=== PATIENT | female | born 1975 | race Hispanic/Latino ===

== ENCOUNTER 2017-08-23 05:42 | Emergency (ER) | payer BC ==
--- OUTSIDE RECORDS SUMMARY | 2017-08-23 05:44 | XMS REPORT ---
:1975 Author [facility] Address [address] [place] [address] Dr. Reyes [address] [place] [id number] Care Team Providers Name Role Phone Unavailable Unavailable Unavailable Problems This patient has no known problems. Allergies, Adverse Reactions, Alerts This patient has no known allergies or adverse reactions. Medications This patient has no known medications. Results Test Description Test Time Test Comments Text Results Atomic Results Result Comments POCT-GLUCOSE METER 2016-10-14 16:47:00 Test Item Value Reference Range Comments POC-GLUCOSE METER (AV) (test 306 mg/dL 70-110 TESTED AT [facility] [address] [id number]) [facility] [address]
--- OUTSIDE RECORDS SUMMARY | 2017-08-23 05:44 | XMS REPORT | Clinical Summary ---
:1975 Author Organization [facility] Address [address] [place] [address] Phone Care Team Providers Name Role Phone Unavailable Primary Care Provider Unavailable Allergies No Known Allergies Current Medications Prescription Sig. Disp. Refills Start Date End Date Status insulin aspart Inject subcutaneously 3 Active (NOVOLOG) 100 unit/mL (three) times daily injection before meals 30 units in AM, 40 units afternoon, 40 units at ight . metFORMIN Take 1,000 mg by mouth Active (GLUCOPHAGE) 1000 MG 2 (two) times daily tablet with breakfast and dinner. insulin glargine Inject subcutaneously Active (LANTUS) 100 unit/mL nightly Use as directed injection . citalopram (CELEXA) Take 20 mg by mouth Active 20 MG tablet daily. LORazepam (ATIVAN) Take 0.5 mg by mouth Active 0.5 MG tablet every 6 (six) hours as needed for Anxiety. dextroamphetamine-amp Take 30 mg by mouth Active hetamine (ADDERALL every morning. XR) 30 MG 24 hr capsule lisinopril Take 20 mg by mouth Active (PRINIVIL,ZESTRIL) 20 daily. MG tablet Active Problems Not on file Encounters Date Type Specialty Care Team Description 10/14/2016 Emergency Emergency Medicine Rod Gabriel, Lizz other MD specified diabetes mellitus without complication (HCC) (Primary Dx) after 08/22/2016 Social History Tobacco Use Types Packs/Day Years Used Date Never Smoker Smokeless Tobacco: Never Used Alcohol Use Drinks/Week oz/Week Comments No Sex Assigned at Date Recorded Not on file Last Filed Vital Signs Vital Sign Reading Time Taken Blood Pressure 120/76 10/14/2016 4:39 PM CDT Pulse 72 10/14/2016 4:39 PM CDT Temperature 36.7 C (98.1 F) 10/14/2016 4:39 PM CDT Respiratory Rate 20 10/14/2016 4:39 PM CDT Oxygen Saturation 97% 10/14/2016 4:39 PM CDT Inhaled Oxygen Concentration - - Weight 95.3 kg (210 lb) 10/14/2016 4:39 PM CDT Height 170.2 cm (5' 7") 10/14/2016 4:39 PM CDT Body Mass Index 32.89 10/14/2016 4:39 PM CDT Plan of Treatment Not on file Results POC-Glucose meter (10/14/2016 4:43 PM) Component Value Ref Range POC-Glucose Meter 306 (H)Comment: TESTED AT [facility] [address] 70 - 110 mg/dL spring [address] Specimen Performing Laboratory Blood [facility] [address] [place] [address] after 08/22/2016
[2017-08-23 06:11] LABS: Absolute Lymphocytes (CBC) 2.1 K/uL (0.7-4.9); Absolute Monocytes 0.4 K/uL (0.1-1.3); Absolute Neutrophil 4.6 K/uL (1.8-8.0); Basophils % 0.5 % (0-1.3); Eosinophils % 2.6 % (0-4.4); Hematocrit 36.6 % (36.0-45.0); Lymphocytes % 28.4 % (15.3-44.8); MCH 24.5 pg (27.0-35.0); MCV 77.3 fL (80-100); MPV 9.7 fL (7.6-11.3); RBC Red Blood Cell Count 4.73 M/uL (3.86-4.86)
[2017-08-23 06:16] LABS: Protime INR 0.96
[2017-08-23 06:47] LABS: ALT/SGPT 256 U/L (12-78); AST/SGOT 177 U/L (15-37); Albumin 3.1 g/dL (3.4-5.0); Alkaline Phosphatase 131 U/L (45-117); BUN Blood Urea Nitrogen 14 mg/dL (7-18); Bicarbonate 28 mmol/L (21-32); Bilirubin Direct < 0.1 mg/dL (0-0.2); Bilirubin Total 0.2 mg/dL (0.2-1.0); CKMB Creatine Kinase MB 1.4 ng/mL (0.3-3.6); Creatine Phosphokinase 57 U/L (26-192); Glucose Level 302 mg/dL (74-106); Magnesium 2.1 mg/dL (1.8-2.4); NT PRO-BNP 59 pg/mL (<125); Potassium 4.2 mmol/L (3.5-5.1); Protein, Total 6.9 g/dL (6.4-8.2); Sodium Level 141 mmol/L (136-145)
--- NOTE | 2017-08-23 07:13 | EDPHYS ---
Physician Documentation [facility] Name: Milla Desouza Age: 42 yrs Sex: Female : 1975 Arrival Date: 08/23/2017 Time: 05:46 Bed 16 Private MD: ED Physician Valeriano Otero HPI: 08/23 06:06 This 42 yrs old Female presents to ER via EMS with complaints of High Blood lolis Sugar. 06:06 The patient or guardian reports hyperglycemia. Onset: The symptoms/episode lolis began/occurred just prior to arrival. Associated signs and symptoms: Pertinent positives: nausea. Current symptoms: In the emergency department the patient's symptoms have improved, moderately. The patient has not experienced similar symptoms in the past. 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 - Social history:: Smoking status: Patient/guardian denies using tobacco. - Ebola Screening: : No symptoms or risks identified at this time. - Family history:: not pertinent. ROS: 06:06 Constitutional: Negative for fever, chills, and weight loss, Eyes: Negative for injury, lolis pain, redness, and discharge, ENT: Negative for injury, pain, and discharge, Neck: Negative for injury, pain, and swelling, Cardiovascular: Negative for chest pain, palpitations, and edema, Respiratory: Negative for shortness of breath, cough, wheezing, and pleuritic chest pain, Abdomen/GI: Negative for abdominal pain, nausea, vomiting, diarrhea, and constipation, Back: Negative for injury and pain, : Negative for injury, bleeding, discharge, and swelling, MS/Extremity: Negative for injury and deformity, Skin: Negative for injury, rash, and discoloration, Psych: Negative for depression, anxiety, suicide ideation, homicidal ideation, and hallucinations, Allergy/Immunology: Negative for hives, rash, and allergies, Endocrine: Negative for neck swelling, polydipsia, polyuria, polyphagia, and marked weight changes, Hematologic/Lymphatic: Negative for swollen nodes, abnormal bleeding, and unusual bruising. 06:06 Neuro: Positive for syncope, weakness. Exam: 06:06 Constitutional: This is a well developed, well nourished patient who is awake, alert, lolis and in no acute distress. Head/Face: Normocephalic, atraumatic. Eyes: Pupils equal round and reactive to light, extra-ocular motions intact. Lids and lashes normal. Conjunctiva and sclera are non-icteric and not injected. Cornea within normal limits. Periorbital areas with no swelling, redness, or edema. ENT: Nares patent. No nasal discharge, no septal abnormalities noted. Tympanic membranes are normal and external auditory canals are clear. Oropharynx with no redness, swelling, or masses, exudates, or evidence of obstruction, uvula midline. Mucous membranes moist. Neck: Trachea midline, no thyromegaly or masses palpated, and no cervical lymphadenopathy. Supple, full range of motion without nuchal rigidity, or vertebral point tenderness. No Meningismus. Chest/axilla: Normal chest wall appearance and motion. Nontender with no deformity. No lesions are appreciated. Cardiovascular: Regular rate and rhythm with a normal S1 and S2. No gallops, murmurs, or rubs. Normal PMI, no JVD. No pulse deficits. Respiratory: Lungs have equal breath sounds bilaterally, clear to auscultation and percussion. No rales, rhonchi or wheezes noted. No increased work of breathing, no retractions or nasal flaring. Abdomen/GI: Soft, non-tender, with normal bowel sounds. No distension or tympany. No guarding or rebound. No evidence of tenderness throughout. Back: No spinal tenderness. No costovertebral tenderness. Full range of motion. Skin: Warm, dry with normal turgor. Normal color with no rashes, no lesions, and no evidence of cellulitis. MS/ Extremity: Pulses equal, no cyanosis. Neurovascular intact. Full, normal range of motion. Neuro: Awake and alert, GCS 15, oriented to person, place, time, and situation. Cranial nerves II-XII grossly intact. Motor strength 5/5 in all extremities. Sensory grossly intact. Cerebellar exam normal. Normal gait. Psych: Awake, alert, with orientation to person, place and time. Behavior, mood, and affect are within normal limits. Vital Signs: 05:51 BP 149 / 93; Pulse 83; Resp 18; Temp 98.3; Pulse Ox 100% on R/A; Weight 97.52 kg; tl2 Height 5 ft. 7 in. (170.18 cm); Pain 0/10; 06:36 BP 131 / 88; Pulse 74; Resp 16; Pulse Ox 100% on R/A; tl2 07:33 BP 145 / 95 Supine; Pulse 76; em 07:33 BP 134 / 104 Sitting; Pulse 85; em 07:33 BP 171 / 100 Standing; Pulse 83; em 05:51 Body Mass Index 33.67 (97.52 kg, 170.18 cm) tl2 MDM: 06:00 Patient medically screened. [facility] 06:10 Data reviewed: vital signs, nurses notes, lab test result(s), EKG, radiologic studies, [facility] CT scan, plain films. 08/23 05:58 Order name: Basic Metabolic Panel; Complete Time: 07:05 2 08/23 05:58 Order name: CBC with Diff; Complete Time: 06:43 tl2 08/23 05:58 Order name: Ckmb; Complete Time: 07:05 tl2 08/23 05:58 Order name: CPK; Complete Time: 07:05 2 08/23 05:58 Order name: LFT's; Complete Time: 07:05 2 08/23 05:58 Order name: Magnesium; Complete Time: 07:05 tl2 08/23 05:58 Order name: NT PRO-BNP; Complete Time: 07:05 tl2 08/23 05:58 Order name: PT-INR; Complete Time: 07:05 2 08/23 05:58 Order name: Ptt, Activated; Complete Time: 07:05 2 08/23 05:58 Order name: Troponin (emerg Dept Use Only); Complete Time: 06:43 tl2 08/23 06:06 Order name: UDS [facility] 08/23 06:06 Order name: Asprin; Complete Time: 07:05 [facility] 08/23 06:10 Order name: Acetaminophen Level; Complete Time: 07:05 EDMS 08 05:58 Order name: XRAY Chest (1 view) tl2 08/23 05:58 Order name: EKG; Complete Time: 05:58 tl2 08/23 05:58 Order name: Cardiac monitoring; Complete Time: 05:58 tl2 08/23 05:58 Order name: EKG - Nurse/Tech; Complete Time: 05:58 tl2 08/23 05:58 Order name: IV Saline Lock; Complete Time: 05:58 tl2 08/23 05:58 Order name: Labs collected and sent; Complete Time: 05:58 tl2 08/23 05:58 Order name: O2 Per Protocol; Complete Time: 05:58 tl2 08/23 05:58 Order name: O2 Sat Monitoring; Complete Time: 05:58 tl2 08/23 05:58 Order name: Urine Dipstick-Ancillary (obtain specimen); Complete Time: 07:36 tl2 08/23 06:06 Order name: CT Head Brain wo Cont lolis 08/23 06:43 Order name: D-Dimer lolis 08/23 06:45 Order name: D-Dimer; Complete Time: 07:05 EDMS 08/23 07:10 Order name: Urine Dipstick--Ancillary (enter results) ag 08/23 07:10 Order name: Urine --Ancillary (enter results) ag 08/23 07:07 Order name: Orthostatics; Complete Time: 07:30 lolis Administered Medications: 07:34 Drug: Insulin Regular Human 10 units {Co-Signature: em (Celso Dixon BOTTLER).} Route: iw Sub-Q; Site: left lower abdomen; 07:41 Follow up: Response: No adverse reaction em Point of Care Testing: Blood Glucose: 05:53 Blood Glucose: 288 mg/dL; tl2 07:32 Blood Glucose: 254 mg/dL; em Ranges: Critical Glucose Levels:Adult <50 mg/dl or >400 mg/dl <40 mg/dl or >180 mg/dl Disposition: 08/23/17 07:13 Discharged to Home. Impression: Type 1 diabetes mellitus, Syncope and collapse, Weakness. - Condition is Stable. - Discharge Instructions: Near-Syncope, Syncope, Weakness, Near-Syncope, [id number]-[id number], Syncope, Jhyf-pw-Gasd, Weakness, Iwse-yt-Trsu, Aspirin and Your Heart. - Medication Reconciliation Form, Thank You Letter, Antibiotic Education, Prescription Opioid Use form. - Follow up: Private Physician; When: 2 - 3 days; Reason: Recheck today's complaints, Continuance of care, Re-evaluation by your physician. - Problem is new. - Symptoms have improved. Signatures: Dispatcher [employer] EDIN Valeriano Otero MD MD cha Munoz, Celso, BOTTLER BOTTLER em Iris Diego RN RN Linda Gottlieb RN RN tl2 Celso Dixon BOTTLER em Corrections: (The following items were deleted from the chart) 06:10 06:07 ACETAMINOPHEN+C.LAB.BRZ ordered. [facility] EDIN 06:45 06:43 D-Dimer ordered. [facility] 07:47 07:13 08/23/2017 07:13 Discharged to Home. Impression: Type 1 diabetes mellitus; em Syncope and collapse; Weakness. Condition is Stable. Forms are Medication Reconciliation Form, Thank You Letter, Antibiotic Education, Prescription Opioid Use. Follow up: Private Physician; When: 2 - 3 days; Reason: Recheck today's complaints, Continuance of care, Re-evaluation by your physician. Problem is new. Symptoms have improved. lolis
--- NOTE | 2017-08-23 07:13 | ER ---
Nurse's Notes [facility] Name: Milla Desouza Age: 42 yrs Sex: Female : 1975 Arrival Date: 08/23/2017 Time: 05:46 Bed 16 Private MD: Diagnosis: Type 1 diabetes mellitus;Syncope and collapse;Weakness Presentation: 08/23 05:47 Presenting complaint: EMS states: Pt woke up to take out trash and began feeling shaky, tl2 thought her BGL was low. Pt passed out and gave her cranberry juice. BGL on scene was 383. Pt is AOx4 in triage, states she feels fine, just tired. BGL in triage is 288. Pt took dose of insulin at 0330 this morning. Transition of care: patient was not received from another setting of care. Onset of symptoms was August 23, 2017 at 04:30. Risk Assessment: Do you want to hurt yourself or someone else? Patient reports no desire to harm self or others. Initial Sepsis Screen: Does the patient meet any 2 criteria? No. Patient's initial sepsis screen is negative. Does the patient have a suspected source of infection? No. Patient's initial sepsis screen is negative. Care prior to arrival: IV initiated. 20 GA, in the right antecubital area, Glucose check: 383. 05:47 Method Of Arrival: EMS: [facility] tl2 05:47 Acuity: JR 3 tl2 Triage Assessment: 05:51 General: Appears in no apparent distress. comfortable, Behavior is calm, cooperative, tl2 appropriate for age. Pain: Denies pain. Neuro: Level of Consciousness is awake, alert, obeys commands, Oriented to person, place, time, situation, Speech is normal, Facial symmetry appears normal, Denies weakness dizziness. Cardiovascular: Denies chest pain. Respiratory: Airway is patent Respiratory effort is even, unlabored, Respiratory pattern is regular, symmetrical. GI: No signs and/or symptoms were reported involving the gastrointestinal system. : No signs and/or symptoms were reported regarding the genitourinary system. Derm: Skin is pink, warm \T\ dry. 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 - Social history:: Smoking status: Patient/guardian denies using tobacco. - Ebola Screening: : No symptoms or risks identified at this time. - Family history:: not pertinent. Screenin:53 Abuse screen: Denies threats or abuse. Nutritional screening: No deficits noted. tl2 Tuberculosis screening: No symptoms or risk factors identified. Fall Risk None identified. Assessment: 05:53 General: see triage assessment. tl2 06:38 Reassessment: Patient appears in no apparent distress at this time. Patient and/or tl2 family updated on plan of care and expected duration. Pain level reassessed. Patient is alert, oriented x 3, equal unlabored respirations, skin warm/dry/pink. 07:10 General: Appears in no apparent distress. comfortable, Behavior is calm, cooperative. em Pain: Denies pain. Neuro: Level of Consciousness is awake, alert, obeys commands, Oriented to person, place, time, situation. Cardiovascular: Patient's skin is warm and dry. Respiratory: Airway is patent Respiratory effort is even, unlabored, Respiratory pattern is regular, symmetrical. GI: Patient currently denies nausea, pain, vomiting. Derm: Skin is intact, Skin is pink, warm \T\ dry. Musculoskeletal: Range of motion: intact in all extremities. 07:15 Reassessment: Patient appears in no apparent distress at this time. Patient and/or em family updated on plan of care and expected duration. Pain level reassessed. Patient is alert, oriented x 3, equal unlabored respirations, skin warm/dry/pink. reports no problems at this time. Vital Signs: 05:51 BP 149 / 93; Pulse 83; Resp 18; Temp 98.3; Pulse Ox 100% on R/A; Weight 97.52 kg; tl2 Height 5 ft. 7 in. (170.18 cm); Pain 0/10; 06:36 BP 131 / 88; Pulse 74; Resp 16; Pulse Ox 100% on R/A; tl2 07:33 BP 145 / 95 Supine; Pulse 76; em 07:33 BP 134 / 104 Sitting; Pulse 85; em 07:33 BP 171 / 100 Standing; Pulse 83; em 05:51 Body Mass Index 33.67 (97.52 kg, 170.18 cm) tl2 ED Course: 05:46 Patient arrived in ED. tl2 05:49 Triage completed. tl2 05:51 Arm band placed on right wrist. tl2 05:53 Patient has correct armband on for positive identification. Bed in low position. Call tl2 light in reach. Side rails up X2. 05:53 Maintain EMS IV. Dressing intact. Good blood return noted. Site clean \T\ dry. Gauge \T\ tl 2 site: 20 g R AC. 06:00 Valeriano Otero MD is Attending Physician. lolis 06:00 Initial lab(s) drawn, by me, sent to lab. cc 06:[address] via wheelchair. kw1 06:46 CT completed. Patient tolerated procedure well. Patient moved back from CT. kw1 06:50 CT Head Brain wo Cont In Process Unspecified. EDMS 06:59 XRAY Chest (1 view) In Process Unspecified. EDMS 07:00 Celso Dixon LVN is Primary Nurse. em 07:32 No provider procedures requiring assistance completed. em 07:44 IV discontinued, intact, bleeding controlled, No redness/swelling at site. Pressure em dressing applied. Administered Medications: 07:34 Drug: Insulin Regular Human 10 units {Co-Signature: em (Celso Dixon LVN).} Route: iw Sub-Q; Site: left lower abdomen; 07:41 Follow up: Response: No adverse reaction em Point of Care Testing: Blood Glucose: 05:53 Blood Glucose: 288 mg/dL; tl2 07:32 Blood Glucose: 254 mg/dL; em Ranges: Outcome: 07:13 Discharge ordered by . lolis 07:44 Discharged to home ambulatory, with family. em 07:44 Condition: good 07:44 Discharge instructions given to patient, Instructed on discharge instructions, Demonstrated understanding of instructions. 07:47 Patient left the ED. em Signatures: Dispatcher [employer] EDValeriano Bernal MD MD cha Munoz, Edgar, LVN LVN em Williams Iris, RN RN iw Therese Hearn Taylor, JOSE RN 2 Carolyne Wilcox 1 Celso Dixon CLOTHING CUTTER em
[2017-08-23] MEDS ORDERED: INSULIN -REGULAR HUMAN 50 UNIT/0.5 ML ML ONE (07:21)
[2017-08-23 07:53] LABS: Barbiturates NEGATIVE (NEGATIVE); Benzodiazepines NEGATIVE (NEGATIVE); Cocaine NEGATIVE (NEGATIVE); METHAMPHETAM NEGATIVE (NEGATIVE); Methadone NEGATIVE (NEGATIVE); Opiates NEGATIVE (NEGATIVE); Phencyclidine NEGATIVE (NEGATIVE); THC Cannibis NEGATIVE (NEGATIVE)
[2017-08-23 08:07] LABS: Urine Blood NEGATIVE (NEG); Urine Glucose 2+ (NEG); Urine Protein NEGATIVE (NEG)
--- NOTE | 2017-08-23 10:53 | EKG ---
Test Date: 2017-08-23 Test Time: 06:03:50 Military Administrative Technician: PIERRE MEASUREMENT RESULTS: Intervals: Rate: 81 ND: 146 QRSD: 82 QT: 364 QTc: 422 [place]: P: 40 ND: 146 QRS: 48 T: 40 INTERPRETIVE STATEMENTS: Normal sinus rhythm Cannot rule out Anterior infarct, age undetermined Abnormal ECG Compared to ECG 03/08/2005 04:35:00 Myocardial infarct finding now present Electronically Signed On 08-23-17 10:53:27 CDT by Eliseo Madrigal
--- NOTE | 2017-08-23 11:59 | RAD REPORT ---
EXAM DESCRIPTION: CT - Head Brain Wo Cont - 08/23/2017 6:59 am CLINICAL HISTORY: SYNCOPE COMPARISON: No comparisons TECHNIQUE: All CT scans are performed using dose optimization technique as appropriate and may inclu de automated exposure control or mA/KV adjustment according to patient size. FINDINGS: No intracranial hemorrhage, hydrocephalus or extra-axial fluid collection.No areas of brai n edema or evidence of midline shift. The paranasal sinuses and mastoids are clear. The calvarium is intact. IMPRESSION: No acute intracranial abnormality.
--- NOTE | 2017-08-23 12:01 | RAD REPORT ---
EXAM DESCRIPTION: RAD - Chest Single View - 08/23/2017 6:59 am CLINICAL HISTORY: syncope Chest pain. COMPARISON: No comparisons FINDINGS: Portable technique limits examination quality. Mildly elevated right hemidiaphragm is seen. The lungs are grossly clear of acute infiltrate. The hea rt is normal in size. No displaced fractures. IMPRESSION: No acute intrathoracic process suspected.
== END 2017-08-23 07:47 | disposition home or self-care (01) ==
LOC: ER 05:42
DX: E10.65 Type 1 diabetes mellitus with hyperglycemia (principal); R53.1 Weakness; Z79.4 Long term (current) use of insulin
CPT/HCPCS: 36415; 70450; 71045; 80048; 80076; 80307; 80329; 81003; 81025; 82550; 82553; 82962; 83735; 83880; 84484; 85025; 85379; 85610; 85730; 93005; 96372; 99284

== ENCOUNTER 2019-08-31 19:18 | Emergency (ER) | payer BC, SELFPAY ==
[2019-08-31] MEDS ORDERED: FAMOTIDINE 20 MG/2 ML VIAL IV ONE (20:01)
[2019-08-31] MEDS ORDERED: NA CHLORIDE 0.9% 1,000 ML ONE (20:01)
[2019-08-31] MEDS ORDERED: dexAMETHasone 10 MG/ML VIAL ONE (20:01)
[2019-08-31] MEDS ORDERED: ASPIRIN 81 MG CHEWABLE TABLET ONE (20:05)
--- NOTE | 2019-08-31 20:33 | RAD REPORT ---
EXAM DESCRIPTION: RAD - Chest Single View - 08/31/2019 8:23 pm CLINICAL HISTORY: Chest pain;Dyspnea COMPARISON: August 2017 TECHNIQUE: AP portable chest image was obtained 08/31/2019 8:23 pm . FINDINGS: Lung volumes are low. No peripheral consolidation or mass. No lymphadenopathy. No COVID sp ecific chest film finding. Heart and vasculature are normal. No measurable pleural effusion and no pneumothorax. No acute bony abnormality seen. No acute aortic findings suspected. IMPRESSION: No acute cardiopulmonary process. No COVID 19 specific chest film findings.
[2019-08-31 20:36] LABS: Absolute Lymphocytes (CBC) 2.1 K/uL (0.7-4.9); Basophils % 0.3 % (0-1.3); Hematocrit 40.7 % (36.0-45.0); Lymphocytes % 21.9 % (15.3-44.8); MPV 9.4 fL (7.6-11.3); RBC Red Blood Cell Count 5.39 M/uL (3.86-4.86)
[2019-08-31 20:37] LABS: ALT/SGPT 96 U/L (12-78); AST/SGOT 50 U/L (15-37); Albumin 3.4 g/dL (3.4-5.0); Alkaline Phosphatase 102 U/L (45-117); BUN Blood Urea Nitrogen 20 mg/dL (7-18); Bicarbonate 23 mmol/L (21-32); Bilirubin Direct < 0.1 mg/dL (0-0.2); Bilirubin Total 0.2 mg/dL (0.2-1.0); Glucose Level 250 mg/dL (74-106); Lipase 201 U/L (73-393); Magnesium 1.7 mg/dL (1.8-2.4); NT PRO-BNP 22 pg/mL (<125); Potassium 3.6 mmol/L (3.5-5.1); Protein, Total 7.5 g/dL (6.4-8.2); Sodium Level 140 mmol/L (136-145); Troponin (Emerg Dept Use Only) < 0.02 ng/mL (0.0-0.045)
--- OUTSIDE RECORDS SUMMARY | 2019-08-31 21:08 | XMS REPORT | Clinical Summary ---
:1975 Author Organization [facility] Address [address] [place] [address] Care Team Providers Name Role Phone Nenita Ambrose Primary Care Provider Allergies No Known Allergies Medications Medication Sig Dispensed Refills Start Date End Date Status insulin aspart Inject subcutaneously 0 Active (NOVOLOG) 100 3 (three) times daily unit/mL injection before meals 30 units in AM, 40 units afternoon, 40 units at ight . metFORMIN Take 1,000 mg by mouth 0 Active (GLUCOPHAGE) 1000 2 (two) times daily MG tablet with breakfast and dinner. insulin glargine Inject subcutaneously 0 Active (LANTUS) 100 nightly Use as unit/mL injection directed . citalopram Take 20 mg by mouth 0 Active (CELEXA) 20 MG daily. tablet LORazepam (ATIVAN) Take 0.5 mg by mouth 0 Active 0.5 MG tablet every 6 (six) hours as needed for Anxiety. dextroamphetamine- Take 30 mg by mouth 0 Active amphetamine every morning. (ADDERALL XR) 30 MG 24 hr capsule lisinopril Take 20 mg by mouth 0 Active (PRINIVIL,ZESTRIL) daily. 20 MG tablet Active Problems Not on file Social History Tobacco Use Types Packs/Day Years Used Date Never Smoker Smokeless Tobacco: Never Used Alcohol Use Drinks/Week oz/Week Comments No Sex Assigned at Date Recorded Not on file Job Start Date Occupation Industry Not on file Not on file Not on file Travel History Travel Start Travel End No recent travel history available. Last Filed Vital Signs Not on file Plan of Treatment Not on file Results Not on fileafter 08/30/2018
--- OUTSIDE RECORDS SUMMARY | 2019-08-31 21:08 | XMS REPORT | Continuity of Care Document ---
:1975 Author Organization [facility] t Address [address] [place] [address] Care Team Providers Name Role Phone Nenita Ambrose Primary Care Physician Byron Milian Attending Clinician Problems This patient has no known problems. Allergies, Adverse Reactions, Alerts This patient has no known allergies or adverse reactions. Social History Social Habit Start Date Stop Date Quantity Comments Source Sex Assigned At [facility] Smoking Status Start Date Stop Date Source Never smoker [facility] Medications Ordered Filled Start Stop Current Ordering Indication Dosage Frequency Signature Comments Components Source Medication Medication Date Date Medication? Clinician (SIG) Name Name citalopram 2017- Yes 20mg QD Take [address] [facility] (CELEXA) 20 8-29 by mouth Luke s - MG tablet 16:55: daily. Medica l 56 Center LORazepam 2017- Yes .5mg Take 0.[address] [facility] (ATIVAN) 8-29 mg by [facility] - 0.5 MG 16:55: mouth Medical tablet 56 every 6 Center (six) hours as needed for Anxiety. dextroamphe 2016-0 Yes 30mg QD Take [address] [facility] tamine-amph 8-29 by mouth Luke [facility] - etamine 16:55: every Medical (ADDERALL 56 morning. Center XR) 30 MG 24 hr capsule lisinopril Yes 20mg QD Take [address] [facility] (PRINIVIL,Z 8-29 by mouth Luke s - ESTRIL) 20 16:55: daily. Medic al MG tablet 56 Center metFORMIN Yes 1000mg Take 1,[address] [facility] (GLUCOPHAGE 8-29 mg by [facility] - ) 1000 MG 16:52: mouth 2 Medic al tablet 39 (two) Center times daily with breakfast and dinner. insulin Yes QD Inject [facility] glargine 8-29 subcutaneo [facility] - (LANTUS) 16:52: usly Medical 100 unit/mL 39 nightly Cente r injection Use as directed . insulin Yes Inject [facility] aspart 8-29 subcutaneo [facility] - (NOVOLOG) 16:52: usly 3 Medica l 100 unit/mL 04 (three) Cente r injection times daily before meals 30 units in AM, 40 units afternoon, 40 units at ight . Procedures This patient has no known procedures. Encounters Start End Encounter Admission Attending Care Care Encounter Source Date/Time Date/Time Type Type Clinicians Facility Department ID 2019-08-19 2019-08-19 Office Don [facility] [id number] 09:01:03 09:31:03 Visit Fantasma Matthews ANIMAL CAREGIVER [id number] [facility] [id number] MATERNAL [id number] & CHILD [address] [place] [address] Results Test Description Test Time Test Comments Results Result Comments Source POCT-GLUCOSE METER 2016-10-14 16:47:00 Test Item Value Reference Range Interpretation Comme nts POC-GLUCOSE METER (AV) (test 306 mg/dL 70-110 H TESTED AT [facility] [address] code = 1538) [facility] [id number]
--- NOTE | 2019-08-31 21:09 | ER ---
Nurse's Notes [facility] Name: Milla Desouza Age: 44 yrs Sex: Female : 1975 Arrival Date: 08/31/2019 Time: 19:20 Bed 14 Private MD: Diagnosis: Coronavirus infection, unspecified-covid 19 positive;Type 1 diabetes mellitus;Chest pain, unspecified;Acute upper respiratory infection, unspecified Presentation: 08/30 19:26 Chief complaint: Patient states: I have been told I am COVID 19 positive, Im having iw increased shortness of breath as well as having chest discomfort and tightness, reports still having body aches and pains as well. Coronavirus screen: Prior COVID test pt reports test results were told to her via phone, does not have a hard copy on file in her possession. Ebola Screen: Patient negative for fever greater than or equal to 101.5 degrees Fahrenheit, and additional compatible Ebola Virus Disease symptoms Patient denies exposure to infectious person. Patient denies travel to an Ebola-affected area in the 21 days before illness onset. No symptoms or risks identified at this time. Initial Sepsis Screen: Does the patient meet any 2 criteria? No. Patient's initial sepsis screen is negative. Does the patient have a suspected source of infection? No. Patient's initial sepsis screen is negative. Risk Assessment: Do you want to hurt yourself or someone else? Patient reports no desire to harm self or others. Onset of symptoms was August 31, 2019. Care prior to arrival: None. Transition of care: patient was not received from another setting of care. 19:26 Method Of Arrival: Ambulatory iw 19:26 Acuity: JR 3 sg Triage Assessment: 19:26 General: Appears in no apparent distress. well groomed, well developed, well nourished, iw Behavior is calm, cooperative, appropriate for age. Pain: Complains of pain in chest, and body aches Quality of pain is described as aching. EENT: No signs and/or symptoms were reported regarding the EENT system. Neuro: Level of Consciousness is awake, alert, obeys commands, Oriented to person, place, time, Speech is normal, Facial symmetry appears normal. Cardiovascular: Patient's skin is warm and dry. Chest pain is denied. Respiratory: Reports shortness of breath on exertion Airway is patent Respiratory effort is even, unlabored, Respiratory pattern is regular, symmetrical, the patient has mild shortness of breath. GI: Abdomen is round non-distended. : No signs and/or symptoms were reported regarding the genitourinary system. Derm: Skin is pink, warm \T\ dry. Musculoskeletal: Circulation, motion, and sensation intact. Range of motion: intact in all extremities. 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 - Social history:: Smoking status: Patient denies any tobacco usage or history of. Screenin:31 Abuse screen: Denies threats or abuse. Nutritional screening: No deficits noted. ea Tuberculosis screening: No symptoms or risk factors identified. Fall Risk None identified. Assessment: 20:15 General: Appears in no apparent distress. Behavior is calm, cooperative, appropriate ea for age. Pain: Complains of pain in chest. Neuro: Level of Consciousness is awake, alert, obeys commands, Oriented to person, place, time. Cardiovascular: Patient's skin is warm and dry. Respiratory: Airway is patent Respiratory effort is even, unlabored, Respiratory pattern is regular, symmetrical. Derm: Skin is intact, Skin is pink, warm \T\ dry. 22:37 Reassessment: Patient and/or family updated on plan of care and expected duration. Pain ea level reassessed. Patient is alert, oriented x 3, equal unlabored respirations, skin warm/dry/pink. Discharge instruction given to patient, verbalized the understanding of instruction. Pt left ED ambulatory tolerating well. Vital Signs: 20:00 BP 168 / 103; Pulse 95; Resp 18; Temp 98.6; Pulse Ox 98% ; ea 21:30 BP 164 / 94; Pulse 88; Resp 18; Pulse Ox 98% on R/A; ea 22:15 BP 140 / 87; Pulse 87; Resp 18; Temp 98.4; Pulse Ox 98% on R/A; ea ED Course: 19:20 Patient arrived in ED. ds1 19:25 Valerie Faulkner, RN is Primary Nurse. ea 19:26 Arm band placed on. iw 19:28 Valeriano Otero MD is Attending Physician. lolis 19:30 Triage completed. iw 20:00 Patient has correct armband on for positive identification. Placed in gown. Bed in low ea position. Call light in reach. 20:16 Inserted saline lock: 20 gauge in right antecubital area, using aseptic technique. dh4 20:23 XRAY Chest (1 view) In Process Unspecified. EDMS 21:07 Grady Moore MD is Referral Physician. lolis 22:36 No provider procedures requiring assistance completed. IV discontinued, intact, ea bleeding controlled, No redness/swelling at site. Pressure dressing applied. Administered Medications: 20:18 Drug: Aspirin 162 mg Route: PO; ea 21:41 Follow up: Response: No adverse reaction ea 20:19 Drug: NS 0.9% 1000 ml Route: IV; Rate: 1 bolus; Site: right forearm; ea 22:36 Follow up: Response: No adverse reaction; IV Status: Completed infusion; IV Intake: ea 1000ml 20:19 Drug: Decadron - Dexamethasone 6 mg Route: IVP; Site: right forearm; ea 21:41 Follow up: Response: No adverse reaction ea 20:19 Drug: Pepcid 20 mg Route: IVP; Site: right forearm; ea 21:41 Follow up: Response: No adverse reaction ea 21:40 Drug: Magnesium Sulfate 1 grams Route: IVPB; Infused Over: 1 hrs; Site: right forearm; ea 22:36 Follow up: Response: No adverse reaction; IV Status: Completed infusion ea Intake: 22:36 IV: 1000ml; Total: 1000ml. ea Outcome: 21:09 Discharge ordered by . lolis 22:36 Discharged to home ambulatory, with family. ea 22:36 Condition: stable 22:36 Discharge instructions given to patient, Instructed on discharge instructions, follow up and referral plans. medication usage, Demonstrated understanding of instructions, follow-up care, medications. 22:39 Patient left the ED. ea Signatures: Dispatcher [employer] EDMS Drake Alvarez, Valeriano Aceves RN, MD MD cha Sanford, Demi ds1 Iris Diego RN RN Valerie Faulkner RN RN Donnell Bobby 4 Corrections: (The following items were deleted from the chart) 21:05 19:26 Acuity: JR 4 iw sg
--- NOTE | 2019-08-31 21:09 | EDPHYS ---
Physician Documentation [facility] Name: Milla Desouza Age: 44 yrs Sex: Female : 1975 Arrival Date: 08/31/2019 Time: 19:20 Bed 14 Private MD: ED Physician Valeriano Otero HPI: 08/30 19:46 This 44 yrs old Female presents to ER via Ambulatory with complaints of lolis Shortness Of Breath, Chest Discomfort- Covid +. 19:46 The patient has shortness of breath at rest. Onset: The symptoms/episode began/occurred lolis 6 hour(s) ago. Duration: The symptoms are intermittent, with no pattern. The patient's shortness of breath has no apparent modifying factors. Associated signs and symptoms: Pertinent positives: chest pain, non-productive cough. Severity of symptoms: At their worst the symptoms were mild in the emergency department the symptoms are unchanged. The patient has not experienced similar symptoms in the past. 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 - Social history:: Smoking status: Patient denies any tobacco usage or history of. ROS: 19:47 Constitutional: Negative for fever, chills, and weight loss, Eyes: Negative for injury, lolis pain, redness, and discharge, ENT: Negative for injury, pain, and discharge, Neck: Negative for injury, pain, and swelling, Abdomen/GI: Negative for abdominal pain, nausea, vomiting, diarrhea, and constipation, Back: Negative for injury and pain, : Negative for injury, bleeding, discharge, and swelling, MS/Extremity: Negative for injury and deformity, Skin: Negative for injury, rash, and discoloration, Neuro: Negative for headache, weakness, numbness, tingling, and seizure, Psych: Negative for depression, anxiety, suicide ideation, homicidal ideation, and hallucinations, Allergy/Immunology: Negative for hives, rash, and allergies, Endocrine: Negative for neck swelling, polydipsia, polyuria, polyphagia, and marked weight changes, Hematologic/Lymphatic: Negative for swollen nodes, abnormal bleeding, and unusual bruising. 19:47 Cardiovascular: Positive for chest pain. 19:47 Respiratory: Positive for cough. Exam: 19:47 Constitutional: This is a well developed, well nourished patient who is awake, alert, lolis and in no acute distress. Head/Face: Normocephalic, atraumatic. Eyes: Pupils equal round and reactive to light, extra-ocular motions intact. Lids and lashes normal. Conjunctiva and sclera are non-icteric and not injected. Cornea within normal limits. Periorbital areas with no swelling, redness, or edema. ENT: Nares patent. No nasal discharge, no septal abnormalities noted. Tympanic membranes are normal and external auditory canals are clear. Oropharynx with no redness, swelling, or masses, exudates, or evidence of obstruction, uvula midline. Mucous membranes moist. Neck: Trachea midline, no thyromegaly or masses palpated, and no cervical lymphadenopathy. Supple, full range of motion without nuchal rigidity, or vertebral point tenderness. No Meningismus. Chest/axilla: Normal chest wall appearance and motion. Nontender with no deformity. No lesions are appreciated. Cardiovascular: Regular rate and rhythm with a normal S1 and S2. No gallops, murmurs, or rubs. Normal PMI, no JVD. No pulse deficits. Respiratory: Lungs have equal breath sounds bilaterally, clear to auscultation and percussion. No rales, rhonchi or wheezes noted. No increased work of breathing, no retractions or nasal flaring. Abdomen/GI: Soft, non-tender, with normal bowel sounds. No distension or tympany. No guarding or rebound. No evidence of tenderness throughout. Back: No spinal tenderness. No costovertebral tenderness. Full range of motion. Skin: Warm, dry with normal turgor. Normal color with no rashes, no lesions, and no evidence of cellulitis. MS/ Extremity: Pulses equal, no cyanosis. Neurovascular intact. Full, normal range of motion. Neuro: Awake and alert, GCS 15, oriented to person, place, time, and situation. Cranial nerves II-XII grossly intact. Motor strength 5/5 in all extremities. Sensory grossly intact. Cerebellar exam normal. Normal gait. Psych: Awake, alert, with orientation to person, place and time. Behavior, mood, and affect are within normal limits. 19:48 Musculoskeletal/extremity: DVT Exam: No signs of deep vein thrombosis. no pain, no lolis swelling, no tenderness, negative Homans' sign noted on exam, no appreciated bluish discoloration, no erythema, no increased warmth. 20:25 ECG was reviewed by the Attending Physician. lolis Vital Signs: 20:00 BP 168 / 103; Pulse 95; Resp 18; Temp 98.6; Pulse Ox 98% ; ea 21:30 BP 164 / 94; Pulse 88; Resp 18; Pulse Ox 98% on R/A; ea 22:15 BP 140 / 87; Pulse 87; Resp 18; Temp 98.4; Pulse Ox 98% on R/A; ea MDM: 19:28 Patient medically screened. [facility] 19:48 Differential diagnosis: Bronchitis CHF exacerbation, abnormal EKG, acute pericarditis, lolis cholecystitis, Cholelithiasis pancreatitis, pneumothorax, pulmonary embolus, stable angina, unstable angina, pneumonia, Pneumothorax pulmonary edema, Pulmonary Embolism Unstable Angina. Antibiotic administration: Not indicated. HEART Score: History: Slightly Suspicious (0), ECG: Normal (0), Age: < or = 45 years (0), Risk Factors: 1 or 2 risk factors (1), [DM]. The patient was given aspirin in the Emergency Department. The patient's Wells Deep Vein Thrombosis Score was calculated as follows: Total Score: 0-2 Pts- Low Risk. The patient's pulmonary embolism risk score was calculated as follows: Total Score: 0-2 points. This patient was found to be at low risk for a pulmonary embolism by using the Well's assessment criteria. OSITO Risk Score: TOTAL SCORE = 0. Data reviewed: vital signs, nurses notes, lab test result(s), EKG, radiologic studies, plain films. Data interpreted: surveillance monitor: rate is 65 beats/min, rhythm is regular, Pulse oximetry: on room air is 96 %. 21:04 ED course: pt feeling better, all labs reviewed, pt will follow up, cont to isolate, lolis return if symptoms worsen. 08/30 19:45 Order name: Basic Metabolic Panel; Complete Time: 20:47 [facility] 08/30 19:45 Order name: CBC with Diff; Complete Time: 22:37 [facility] 08/30 19:45 Order name: LFT's; Complete Time: 20:47 [facility] 08/30 19:45 Order name: Magnesium; Complete Time: 20:47 [facility] 08/30 19:45 Order name: NT PRO-BNP; Complete Time: 20:47 [facility] 08/30 19:45 Order name: Troponin (emerg Dept Use Only); Complete Time: 20:47 [facility] 08/30 19:45 Order name: XRAY Chest (1 view); Complete Time: 20:47 [facility] 08/30 19:45 Order name: D-Dimer; Complete Time: 20:47 [facility] 08/30 20:31 Order name: Lipase; Complete Time: 20:47 [facility] 08/30 21:02 Order name: Troponin (emerg Dept Use Only); Complete Time: 22:37 [facility] 08/30 21:26 Order name: CBC Smear Scan; Complete Time: 22:37 [facility] 08/30 19:45 Order name: EKG; Complete Time: 19:46 [facility] 08/30 19:45 Order name: Cardiac monitoring; Complete Time: 20:19 [facility] 08/30 19:45 Order name: EKG - Nurse/Tech; Complete Time: 20:19 [facility] 08/30 19:45 Order name: IV Saline Lock; Complete Time: 20:19 [facility] 08/30 19:45 Order name: Labs collected and sent; Complete Time: 20:19 [facility] 08/30 19:45 Order name: O2 Per Protocol; Complete Time: 20:19 [facility] 08/30 19:45 Order name: O2 Sat Monitoring; Complete Time: 20:19 [facility] EC:25 Rate is 97 beats/min. Rhythm is regular. QRS Bowie is Normal. VA interval is normal. QRS lolis interval is normal. QT interval is normal. No Q waves. T waves are Normal. No ST changes noted. Clinical impression: NSR w/ Non-specific ST/T Changes and No evidence of ischemia. Interpreted by me. Reviewed by me. Administered Medications: 20:18 Drug: Aspirin 162 mg Route: PO; ea 21:41 Follow up: Response: No adverse reaction ea 20:19 Drug: NS 0.9% 1000 ml Route: IV; Rate: 1 bolus; Site: right forearm; ea 22:36 Follow up: Response: No adverse reaction; IV Status: Completed infusion; IV Intake: ea 1000ml 20:19 Drug: Decadron - Dexamethasone 6 mg Route: IVP; Site: right forearm; ea 21:41 Follow up: Response: No adverse reaction ea 20:19 Drug: Pepcid 20 mg Route: IVP; Site: right forearm; ea 21:41 Follow up: Response: No adverse reaction ea 21:40 Drug: Magnesium Sulfate 1 grams Route: IVPB; Infused Over: 1 hrs; Site: right forearm; ea 22:36 Follow up: Response: No adverse reaction; IV Status: Completed infusion ea Disposition: 08/31/19 21:09 Discharged to Home. Impression: Coronavirus infection, unspecified - covid 19 positive, Type 1 diabetes mellitus, Chest pain, unspecified, Acute upper respiratory infection, unspecified. - Condition is Stable. - Discharge Instructions: Nonspecific Chest Pain, Type 1 Diabetes Mellitus, Diagnosis, Adult, Hypertension, Upper Respiratory Infection, Adult, Nonspecific Chest Pain, Givz-pb-Fzzy, Upper Respiratory Infection, Adult, Qnqh-eq-Wwqd, Hypertension, Ftdc-fs-Iqtm, Diabetes Mellitus and Food, Aspirin and Your Heart, Cough, Adult, Type 1 Diabetes Mellitus, Self Care, Adult, Type 1 Diabetes Mellitus, Diagnosis, Adult, Jqmo-oc-Qykf, Type 1 Diabetes Mellitus, Self Care, Adult, Jvzf-jy-Oozz, COVID-19. - Prescriptions for Zithromax Z- Jean 250 mg Oral Tablet - take 1 tablet by ORAL route as directed for 5 days Day 1 - take two (2) tablets one time. Day 2, 3, 4 , 5 take one (1) tablet once daily.; 6 tablet. Medrol (Jean) 4 mg Oral Tablets, Dose Pack - take 1 tablet by ORAL route as directed - follow package instructions; 1 packet. Albuterol Sulfate 90 mcg/actuation - inhale 1-2 puff by INHALATION route every 4-6 hours; 1 Inhaler. - Medication Reconciliation Form, Thank You Letter, Antibiotic Education, Prescription Opioid Use, Work release form form. - Follow up: Private Physician; When: 2 - 3 days; Reason: Recheck today's complaints, Continuance of care, Re-evaluation by your physician. Follow up: Grady Moore MD; When: 2 - 3 days; Reason: Recheck today's complaints, Re-evaluation by your physician. - Problem is new. - Symptoms have improved. Signatures: Dispatcher [employer] Valeriano Jessica MD MD cha Williams, Irene, RN RN iw Antunez, Elena, RN RN ea Corrections: (The following items were deleted from the chart) 20:32 19:51 LIPASE+C.LAB.BRZ ordered. EDNV EDMS 22:39 21:09 08/31/2019 21:09 Discharged to Home. Impression: Coronavirus infection, ea unspecified - covid 19 positive; Type 1 diabetes mellitus; Chest pain, unspecified; Acute upper respiratory infection, unspecified. Condition is Stable. Forms are Medication Reconciliation Form, Thank You Letter, Antibiotic Education, Prescription Opioid Use. Follow up: Private Physician; When: 2 - 3 days; Reason: Recheck today's complaints, Continuance of care, Re-evaluation by your physician. Follow up: Grady Moore; When: 2 - 3 days; Reason: Recheck today's complaints, Re-evaluation by your physician. Problem is new. Symptoms have improved. lolis
[2019-08-31 21:26] LABS: Anisocytosis 2+; Blood Morphology Comment NOTED (NOT SEEN); Platelet Estimate ADEQ; Urine White Blood Cell Casts OK
[2019-08-31] MEDS ORDERED: Magnesium Sulfate 2gm IVPB 2 G/50 ML BAG IV ONE (21:27)
[2019-08-31 22:58] VITALS: O2SAT 98
[2019-08-31 23:01] VITALS: BP 140/87; TEMP 98.4
--- NOTE | 2019-09-01 07:24 | EKG ---
Test Date: 2019-08-31 Test Time: 20:02:34 Classified Copy Control Clerk: MYAH MEASUREMENT RESULTS: Intervals: Rate: 0 ID: QRSD: 0 QT: 0 QTc: 0 [place]: P: ID: QRS: 0 T: 0 INTERPRETIVE STATEMENTS: No QRS complexes found, no ECG analysis possible Compared to ECG 08/23/2017 06:03:50 Sinus rhythm no longer present Myocardial infarct finding no longer present Electronically Signed On 09-01-19 07:22:55 CDT by Grady Moore
== END 2019-08-31 22:39 | disposition home or self-care (01) ==
LOC: ER 19:18
DX: U07.1 COVID-19 (principal); J06.9 Acute upper respiratory infection, unspecified; E10.9 Type 1 diabetes mellitus without complications
CPT/HCPCS: 36415; 71045; 80048; 80076; 83690; 83735; 83880; 84484; 85025; 85379; 93005; 96361; 96365; 96375; 99283; J1100; J3475; J7030

== ENCOUNTER 2023-12-07 21:50 | Emergency (ER) | payer OTHER ==
--- NOTE | 2023-12-07 22:46 | EDPHYS ---
Physician Documentation [facility] Name: Milla Desouza Age: 48 yrs Sex: Female : 1975 Arrival Date: 12/07/2023 Time: 21:50 Bed Waiting Private MD: ED Physician Gabe Al HPI: 12/06 22:41 This 48 yrs old Female presents to ER via Unassigned with complaints of Leg kb Pain, Numbness. 22:41 Pt is a 48 year old female who presents for muscle spasms to left leg. States she has kb chronic issues with this leg and has tried different medications without relief. States she came in tonight because the spasms will not stop. Denies injury or trauma. . 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 - Infectious Disease History:: Denies. - Social history:: Smoking status: Patient denies any tobacco usage or history of. Patient uses alcohol, on a daily basis. Patient/guardian denies using street drugs. ROS: 22:41 Constitutional: As per HPI kb Exam: 22:41 Constitutional: This is a well developed, well nourished patient who is awake, alert, kb and in no acute distress. Head/Face: Normocephalic, atraumatic. ENT: Moist Mucous membranes Cardiovascular: Regular rate Respiratory: Respirations even and unlabored. No increased work of breathing. Talking in full sentences Back: No spinal tenderness. No costovertebral tenderness. Full range of motion. Skin: Warm, dry with normal turgor. Normal color. MS/ Extremity: Pulses equal, no cyanosis. Neurovascular intact. Full, normal range of motion. Neuro: Awake and alert, GCS 15, oriented to person, place, time, and situation. Vital Signs: 22:44 BP 154 / 94; Pulse 87; Resp 17 S; Temp 97.5(O); Pulse Ox 97% on R/A; Weight 99.79 kg lg3 (R); Height 5 ft. 7 in. (R); Pain 8/10; 22:44 Body Mass Index 34.46 (99.79 kg, 170.18 cm) lg3 22:44 Pain Scale: Adult lg3 MDM: 22:41 Medical Screening Exam initiated kb 22:42 Differential diagnosis: muscle spasm, sciatica. Data reviewed: vital signs, nurses kb notes. Counseling: I had a detailed discussion with the patient and/or guardian regarding the historical points, exam findings, and any diagnostic results supporting the discharge/admit diagnosis, the need for outpatient follow up, a family practitioner, to return to the emergency department if symptoms worsen or persist or if there are any questions or concerns that arise at home. Administered Medications: 22:59 Drug: Diazepam PO 5 mg PO once Route: PO; lg3 22:59 Follow up: Response: Medication Administered at Departure lg3 Disposition: 12/07 04:54 Co-signature as Attending Physician, Gabe Al MD I agree with the assessment sp4 and plan of care. I reviewed the patient's care provided by the Advanced Practice Provider and agree with the diagnosis and treatment plan. Disposition Summary: 12/07/23 22:45 Discharge Ordered Notes: Location: Home kb Condition: Stable kb Diagnosis - Muscle spasm kb Followup: kb - With: Emergency Department - When: As needed - Reason: Worsening of condition Followup: kb - With: Private Physician - When: 2 - 3 days - Reason: Recheck today's complaints, Continuance of care, Re-evaluation by your physician Discharge Instructions: - Discharge Summary Sheet kb - Muscle Cramps and Spasms, [id number] kb Forms: - Medication Reconciliation Form kb - Antibiotic Education kb - Prescription Opioid Use kb - Patient Portal Instructions kb - Leadership Thank You Letter kb Prescriptions: - Cyclobenzaprine 10 mg Oral tablet - take 1 tablet ORAL route every 8 hours As needed; 15 tablet; Refills: 0, kb Product Selection Permitted Signatures: Candy Young FNP-C FNP-Ckb Able, Lacie, JOSE RN lg3 Gabe Al MD MD sp4
[2023-12-07] MEDS ORDERED: DIAZEPAM 5 MG TABLET ONE (22:55)
--- NOTE | 2023-12-07 23:00 | ER ---
Nurse's Notes [facility] Name: Milla Desouza Age: 48 yrs Sex: Female : 1975 Arrival Date: 12/07/2023 Time: 21:50 Bed Waiting Private MD: Diagnosis: Muscle spasm Presentation: 12/06 22:44 Chief complaint: Patient states: chronic muscle spasms to left leg worsening today. lg3 Coronavirus screen: Client denies travel out of the [place] in the last 14 days. At this time, the client does not indicate any symptoms associated with coronavirus-19. Ebola Screen: No symptoms or risks identified at this time. Initial Sepsis Screen: Does the patient meet any 2 criteria? No. Patient's initial sepsis screen is negative. Does the patient have a suspected source of infection? No. Patient's initial sepsis screen is negative. Risk Assessment: Do you want to hurt yourself or someone else? Patient reports no desire to harm self or others. Onset of symptoms was December 07, 2023. 22:44 Method Of Arrival: Ambulatory 3 22:44 Acuity: JR 4 lg3 Triage Assessment: 22:47 General: Appears in no apparent distress. comfortable, Behavior is calm, cooperative. lg3 Pain: Complains of pain in left leg. EENT: No deficits noted. No signs and/or symptoms were reported regarding the EENT system. Neuro: No deficits noted. Rose Agitation-Sedation Scale (RASS): 0 - Alert and Calm Level of Consciousness is awake, alert, obeys commands, Oriented to person, place, time, situation. Cardiovascular: No deficits noted. Denies chest pain, shortness of breath, Capillary refill < 3 seconds Clubbing of nail beds is absent JVD is absent Patient's skin is warm and dry. Respiratory: No deficits noted. Airway is patent Respiratory effort is even, unlabored, Respiratory pattern is regular, symmetrical. GI: No deficits noted. No signs and/or symptoms were reported involving the gastrointestinal system. : No deficits noted. No signs and/or symptoms were reported regarding the genitourinary system. Derm: No deficits noted. No signs and/or symptoms reported regarding the dermatologic system. Skin is intact, is healthy with good turgor, Skin is dry, Skin is normal, Skin temperature is warm. Musculoskeletal: Circulation, motion, and sensation intact. Range of motion: intact in all extremities, Reports pain in left leg. 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 - Infectious Disease History:: Denies. - Social history:: Smoking status: Patient denies any tobacco usage or history of. Patient uses alcohol, on a daily basis. Patient/guardian denies using street drugs. Screenin:50 [facility] ED Fall Risk Assessment (Adult) History of falling in the last 3 months, lg3 including since admission No falls in past 3 months (0 pts) Confusion or Disorientation No (0 pts) Intoxicated or Sedated No (0 pts) Impaired Gait No (0 pts) Mobility Assist Device Used No (0 pt) Altered Elimination No (0 pt) Score/Fall Risk Level 0 - 2 = Low Risk Oriented to surroundings, Maintained a safe environment, Educated pt \T\ family on fall prevention, incl call for assistance when getting out of bed, Assessed \T\ reinforced patient's understanding of fall precautions. Abuse screen: Denies threats or abuse. Denies injuries from another. Nutritional screening: No deficits noted. Tuberculosis screening: No symptoms or risk factors identified. Assessment: 22:50 General: see triage assessment. lg3 Vital Signs: 22:44 BP 154 / 94; Pulse 87; Resp 17 S; Temp 97.5(O); Pulse Ox 97% on R/A; Weight 99.79 kg lg3 (R); Height 5 ft. 7 in. (R); Pain 8/10; 22:44 Body Mass Index 34.46 (99.79 kg, 170.18 cm) lg3 22:44 Pain Scale: Adult lg3 ED Course: 22:09 Patient arrived in ED. jj6 22:41 [facility]andy [facility]C [facility] kb 22:41 Gabe Al MD is Attending Physician. kb 22:47 Triage completed. lg3 22:47 Arm band placed on right wrist. lg3 22:50 Patient has correct armband on for positive identification. lg3 22:59 No provider procedures requiring assistance completed. Patient did not have IV access lg3 during this emergency room visit. Administered Medications: 22:59 Drug: Diazepam PO 5 mg PO once Route: PO; lg3 22:59 Follow up: Response: Medication Administered at Departure lg3 Medication: 22:50 VIS not applicable for this client. lg3 Outcome: 22:45 Discharge ordered by MD. conrad 22:59 Discharged to home ambulatory, with significant other, lg3 22:59 Condition: stable 22:59 Discharge instructions given to patient, Instructed on discharge instructions, follow up and referral plans. medication usage, Demonstrated understanding of instructions, follow-up care, medications, Prescriptions given X 1, 23:00 Patient left the ED. lg3 Signatures: Candy Young, QA INTERNSHIP-C QA INTERNSHIP-Roxana Keen RN RN lg3 Delaney Tomas jj6
[2023-12-08 04:27] VITALS: BP 154/94; TEMP 97.5; O2SAT 97
== END 2023-12-07 23:00 | disposition home or self-care (01) ==
LOC: ER 21:50
DX: M62.838 Other muscle spasm (principal)
CPT/HCPCS: 99283

== ENCOUNTER 2023-12-22 22:13 | Emergency (ER) | payer OTHER ==
[2023-12-22 22:55] LABS: PT Prothrombin Time 12.1 SECONDS (9.4-12.5); PTT, Activated Partial Thromb 30.9 SECONDS (24.3-36.9); Protime INR 1.08
[2023-12-22 22:57] LABS: Barbiturates NEGATIVE (NEGATIVE); Benzodiazepines NEGATIVE (NEGATIVE); Cocaine NEGATIVE (NEGATIVE); METHAMPHETAM NEGATIVE (NEGATIVE); Methadone NEGATIVE (NEGATIVE); Opiates NEGATIVE (NEGATIVE); Phencyclidine NEGATIVE (NEGATIVE); THC Cannibis POSITIVE (NEGATIVE)
[2023-12-22 22:57] LABS: Absolute Basophils 0.1 K/uL (0-0.5); Absolute Eosinophils 0.3 K/uL (0-0.5); Absolute Lymphocytes (CBC) 4.1 K/uL (0.7-4.9); Absolute Monocytes 0.9 K/uL (0.1-1.3); Absolute Neutrophil 7.6 K/uL (1.8-8.0); Basophils % 0.6 % (0-1.3); Eosinophils % 2.5 % (0-4.4); Hematocrit 37.3 % (36.0-45.0); Lymphocytes % 31.7 % (15.3-44.8); MCH 20.6 pg (27.0-35.0); MCHC 29.6 g/dL (32.0-36.0); MCV 69.8 fL (80-100); MPV 9.4 fL (7.6-11.3); Monocytes % 6.6 % (3.3-12.3); Neutrophils % 58.6 % (41.7-73.7); Platelets 418 thou/uL (152-406); RBC Red Blood Cell Count 5.35 M/uL (3.86-4.86); Red Cell Distribution Width 22.1 % (12.1-15.2)
[2023-12-22] MEDS ORDERED: NA CHLORIDE 0.9% 2,000 ML ONE (23:07)
[2023-12-22 23:21] LABS: Specific Gravity > 1.030 (1.005-1.030); Urine Bacteria <20 /HPF (<20); Urine Bilirubin NEGATIVE (Negative); Urine Blood 3+ (OVER) (Negative); Urine Clarity Clear (Clear); Urine Color Light-Yellow (Yellow); Urine Culture Reflex Order NOT NEEDED; Urine Glucose 4+ (Over) (Negative); Urine Ketones NEGATIVE (Negative); Urine Microscopic Reflex YN ORDER UMIC; Urine Mucus Slight /HPF (None Seen); Urine Nitrite NEGATIVE (Negative); Urine Protein TRACE (Negative); Urine Urobilinogen Normal (Normal); Urine WBC <5 /HPF (<5)
[2023-12-22 23:56] LABS: ALT/SGPT 25 U/L (13-56); AST/SGOT 17 U/L (15-37); Albumin 3.6 g/dL (3.4-5.0); Albumin/Globulin Ratio 0.8 (1.1-1.8); Alkaline Phosphatase 93 U/L (45-117); Anion Gap 8.3 mEq/L (5.0-15.0); BUN Blood Urea Nitrogen 15 mg/dL (7-18); Bicarbonate 29 mEq/L (21-32); Bilirubin Total 0.3 mg/dL (0.2-1.0); Globulin 4.7 g/dL (2.3-3.5); Glomerular Filtration Rate 79 ml/min (=/>90); Glucose Level 255 mg/dL (74-106); Potassium 3.3 mEq/L (3.5-5.1); Protein, Total 8.3 g/dL (6.4-8.2); Sodium Level 137 mEq/L (136-145)
[2023-12-22 23:59] LABS: Bilirubin Direct < 0.2 mg/dL (0-0.2); Bilirubin Indirect, Calculated 0.1 mg/dL (0.2-0.8)
[2023-12-23 00:19] LABS: Anisocytosis 2+; Blood Morphology Comment NOTED (NOT SEEN); Hypochromasia 1+; Microcytosis 2+; Platelet Estimate ADEQ; White Blood Cell Scan OK (OK)
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
--- NOTE | 2023-12-23 02:20 | ER ---
Nurse's Notes [facility] Name: Milla Poon Age: 48 yrs Sex: Female : 1975 Arrival Date: 12/22/2023 Time: 22:13 Bed 17 Private MD: Diagnosis: Acute Depression, Suicidal ideation, Suicide attempt Presentation: 12/21 22:10 Chief complaint: EMS states: patient took 7 lunesto pills with 1 beer today and 4 kj2 ativan pills yesterday. Coronavirus screen: At this time, the client does not indicate any symptoms associated with coronavirus-19. Ebola Screen: No symptoms or risks identified at this time. Initial Sepsis Screen: Does the patient meet any 2 criteria? No. Patient's initial sepsis screen is negative. Does the patient have a suspected source of infection? No. Patient's initial sepsis screen is negative. Risk Assessment: Do you want to hurt yourself or someone else? Patient reports no desire to harm self or others. Onset of symptoms was December 22, 2023. 22:10 Method Of Arrival: EMS: [facility] kj2 22:10 Acuity: JR 3 kj2 Triage Assessment: 22:10 General: Appears in no apparent distress. Behavior is calm, cooperative. Pain: Denies kj2 pain. Neuro: Level of Consciousness is awake, alert, obeys commands, Oriented to person, place, time, situation. Cardiovascular: Patient's skin is warm and dry. Respiratory: Airway is patent Respiratory effort is even, unlabored. GI: No signs and/or symptoms were reported involving the gastrointestinal system. : No signs and/or symptoms were reported regarding the genitourinary system. 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 - Infectious Disease History:: Denies. - Family history:: not pertinent. - Social history:: Smoking status: . Screenin:10 [facility] ED Fall Risk Assessment (Adult) History of falling in the last 3 months, kj2 including since admission No falls in past 3 months (0 pts) Confusion or Disorientation No (0 pts) Intoxicated or Sedated No (0 pts) Impaired Gait No (0 pts) Mobility Assist Device Used No (0 pt) Altered Elimination No (0 pt) Score/Fall Risk Level 0 - 2 = Low Risk Maintained a safe environment, Hourly rounding (assess needs \\T\\ fall precautionary measures) done. Abuse screen: Denies threats or abuse. Denies injuries from another. Nutritional screening: No deficits noted. Tuberculosis screening: No symptoms or risk factors identified. Assessment: 22:15 General: SEE TRIAGE. kj2 23:02 Reassessment: CALLED POISON CONTROL THE INDICATIONS PROVIDED ARE COLLECT OVERDOSE PANEL ha1 OF BLOOD, CHECK TYLENOL LEVELS, ANDCOLLECT URINE, MONITOR FOR 6 HOURS AND AFTER THAT TIME GET A PSYCH CONSULT. . 12/22 01:50 Reassessment: nurse to nurse report with JOSE Ortega at [facility] at [id number]. kj2 01:50 Reassessment: Patient appears in no apparent distress at this time. Patient and/or kj2 family updated on plan of care and expected duration. Pain level reassessed. Patient is alert, oriented x 3, equal unlabored respirations, skin warm/dry/pink. Psych: 12/21 22:10 Watson Suicide Severity Screening: In the past month, have you wished you were kj2 or wished you could go to sleep and not wake up? Patient responds "yes." Based off the client's responses additional C-SSRS screening is required. "In the past month, have you actually had any thoughts of killing yourself?" Patient responds "yes." Based off the client's response additional Watson suicide severity screening questions to be further documented on paper forms. "In your lifetime, have you ever done anything, started to do anything, or prepared to do anything to end your life?" Patient responds "yes." Patient reports suicidal intent within 3 past months. Subjective: Having thoughts of suicide. Plan for suicide is overdose. Objective: Patient is cooperative. Interventions: Removed personal items and placed in bag. Patient placed in hospital gown. Searched person for dangerous items. Urine collected and sent for urine drug test. Belonging list filled out. Patient reassessed during use of restraints. Patient is physically safe. Patient's cardiac status is stable. Patient's respirations are even and unlabored. Patient has good circulation in all extremities as indicated by capillary refill < 3 seconds. Patient's ROM assessed and is intact. Patient nutrition and hydration needs will continue to be monitored and addressed. Patient hygiene and elimination needs met. Patient assessed for signs of distress. Patient remains reasonably comfortable at this time. Safety Checks: Personal items have been removed. Door is open. No visitors are present at this time. overdosed on lenusta and ativan. Commitment: Patient will be a voluntary commitment. Vital Signs: 22:10 BP 144 / 90; Pulse 96; Resp 18; Temp 98.6; Pulse Ox 100% on R/A; Weight 99.79 kg; kj2 Height 5 ft. 7 in. ; 12/22 01:10 BP 134 / 86; Pulse 92; Resp 18; Temp 98.6; Pulse Ox 100% on R/A; kj2 03:08 BP 134 / 80; Pulse 88; Resp 15; Pulse Ox 99% on R/A; kj2 12/21 22:10 Body Mass Index 34.46 (99.79 kg, 170.18 cm) kj2 Siobhan Coma Score: 02:07 Eye Response: spontaneous(4). Motor Response: obeys commands(6). Verbal Response: sp4 oriented(5). Total: 15. ED Course: 12/21 22:10 Patient has correct armband on for positive identification. Placed in gown. Bed in low kj2 position. Provided Education on: safety precautions. 22:10 Safety checks: Items removed: Door open/sign placed on door: Sitter present: Yes. kmf 22:19 Patient arrived in ED. rv1 22:19 Arm band placed on right wrist. ha1 22:20 Gabe Al MD is Attending Physician. sp4 22:25 EKG completed in triage. Results shown to . kj2 22:45 Lights dimmed. Warm blanket given. Pillow given. Verbal reassurance given. kmf 22:55 Rosy Conner, JOSE is Primary Nurse. kj2 23:26 Triage completed. kj2 23:33 Maintain EMS IV. Dressing intact. Good blood return noted. Site clean \\T\\ dry. Gauge \\T\\ km f site: 20G Right Lower Arm. Flushed with 10 mL NS. 23:34 Initial lab(s) drawn, by me, sent to lab. EKG done, by ED staff, reviewed by Gabe Al MD. 12/22 01:23 Patient information faxed to ([facility], [facility]). ty 01:31 [facility] called for [id number]. ty 01:39 [facility] [id number]. ty 01:45 [facility]. ty 02:14 [facility] called for transport. ty 03:11 No provider procedures requiring assistance completed. ha1 03:11 IV discontinued, intact, bleeding controlled, No redness/swelling at site. Pressure ha1 dressing applied. Administered Medications: 03:10 Discontinued: ns 0.9% 1000 ml IV at 125 ml/hr continuous kj2 12/21 23:23 Drug: NS 0.9% IV 1000 ml IV at 1000 ml once; to be given as a bolus over 60 minutes kj2 Route: IV; Rate: 1000 ml; Site: right forearm; 12/22 00:23 Follow up: IV Status: Completed infusion; IV Intake: 1000ml kj2 12/21 23:23 Drug: NS 0.9% IV 1000 ml IV at 125 ml/hr continuous Route: IV; Rate: 125 ml/hr; Site: [facility] right forearm; 12/22 03:10 Follow up: Response: No adverse reaction kj2 02:39 Drug: Diazepam PO 5 mg PO once Route: PO; kj2 03:04 Follow up: Response: No adverse reaction kj2 Medication: 12/21 22:10 VIS not applicable for this client. kj2 Intake: 12/22 00:23 IV: 1000ml; Total: 1000ml. kj2 Outcome: 02:19 ER care complete, transfer ordered by . sp4 03:11 Patient left the ED. kj2 03:11 Transferred by ground EMS Transfer form completed. X-rays sent w/ patient. Note[facility] 03:11 Condition: stable ha 03:11 Instructed on the need for transfer, Demonstrated understanding of instructions, Signatures: Chen Hassan RN RN ha1 Marlene South rv1 Gabe Al MD MD sp4 Jennifer Arias [facility] [place] Krystal RN RN kj2 Corrections: (The following items were deleted from the chart) 00:51 11 23:02 Reassessment: CALLED POISON CONTROL THE INDICATIONS PROVIDED ARE COLLECT ha1 OVERDOSE PANEL OF BLOOD, CHECK TYLENOL LEVELS, AND URINE, MONITOR FOR 6 HOURS AND AFTER THAT TIME GET A PSYCH CONSULT. ha1
[2023-12-23] MEDS ORDERED: DIAZEPAM 5 MG TABLET ONE (02:34)
[2023-12-23 03:16] VITALS: TEMP 98.6
[2023-12-23 03:17] VITALS: BP 134/80; O2SAT 99
== END 2023-12-23 03:11 ==
LOC: ER 22:13
DX: T42.4X2A Poisoning by benzodiazepines, intentional self-harm, initial encounter (principal); T42.6X2A Poisoning by other antiepileptic and sedative-hypnotic drugs, intentional self-harm, initial encounter; F32.A Depression, unspecified; E11.40 Type 2 diabetes mellitus with diabetic neuropathy, unspecified
CPT/HCPCS: 85025; 81001; 80048; 36415; 81025; 85610; 80076; 85730; 84443; 84439; 80307; 80143; 80179; 82077; J7030